=== PATIENT | female | born 1935 | race Caucasian/White ===

== ENCOUNTER 2019-09-22 10:24 | Emergency (ER) | payer OTHER ==
[~2019-09-22] VITALS: Ht 157.5 cm; Wt 52.6 kg
[~2019-09-22 10:24] MED LIST: ADULT LOW DOSE81 MG PO; BENTYL20 MG PO; CALCIUM 500 +1 EAC5 PO; CENTRUM SILVER1 EAC4 PO; CENTRUM ULTRA1 EACH PO; CLARITIN10 MG PO; FISH OIL 1,0001 EAC5 PO; NEPHROCAPS SOFT1 CAP; NIASPAN ER 101000 M1 PO; TYLENOL325 MG PO; ZPAK PO
[2019-09-22] MEDS ORDERED: NORCO 5-325 TA1 EAC1 PO (11:28)
[2019-09-22 11:44] VITALS: BP 118/67
== END 2019-09-22 11:45 | disposition home or self-care (01) ==
LOC: M.ERS 10:24
DX: S00.03XA Contusion of scalp, initial encounter (principal); E78.00 Pure hypercholesterolemia, unspecified; Z98.890 Other specified postprocedural states; Z88.8 Allergy status to other drugs, medicaments and biological substances; W22.8XXA Striking against or struck by other objects, initial encounter; Y93.89 Activity, other specified; Y92.89 Other specified places as the place of occurrence of the external cause; Y99.8 Other external cause status

== ENCOUNTER 2020-03-31 14:34 | Emergency (ER) | payer OTHER ==
[~2020-03-31] VITALS: Ht 157.5 cm; Wt 53.5 kg
[~2020-03-31 14:34] MED LIST changes: +NORCO 5-325 TA1 EAC1 PO
[2020-03-31 16:30] VITALS: BP 136/70
== END 2020-03-31 16:30 | disposition home or self-care (01) ==
LOC: M.ERS 14:34
DX: S00.83XA Contusion of other part of head, initial encounter (principal); S40.211A Abrasion of right shoulder, initial encounter; S61.401A Unspecified open wound of right hand, initial encounter; E78.00 Pure hypercholesterolemia, unspecified; Z88.6 Allergy status to analgesic agent; Z79.82 Long term (current) use of aspirin; W01.0XXA Fall on same level from slipping, tripping and stumbling without subsequent striking against object, initial encounter; Y93.89 Activity, other specified; Y92.89 Other specified places as the place of occurrence of the external cause; Y99.8 Other external cause status

== ENCOUNTER → 2020-12-16 | Outpatient (CLI) | payer OTHER | LOC: M.RAD 12-08 16:24 | PROVIDERS: ATTEND Internal Medicine | DX: Z12.31 Encounter for screening mammogram for malignant neoplasm of breast (principal); M19.031 Primary osteoarthritis, right wrist; Z78.0 Asymptomatic menopausal state ==

== ENCOUNTER → 2021-04-14 | Outpatient (CLI) | payer OTHER | LOC: M.RAD 13:57 | PROVIDERS: ATTEND Internal Medicine | DX: M25.562 Pain in left knee (principal); I77.1 Stricture of artery; D16.22 Benign neoplasm of long bones of left lower limb ==

== ENCOUNTER → 2021-05-12 | Outpatient (CLI) | payer OTHER | LOC: M.RAD 16:44 | PROVIDERS: ATTEND Internal Medicine | DX: S52.355A Nondisplaced comminuted fracture of shaft of radius, left arm, initial encounter for closed fracture (principal); M25.432 Effusion, left wrist; M25.532 Pain in left wrist; M19.032 Primary osteoarthritis, left wrist; M85.88 Other specified disorders of bone density and structure, other site; X58.XXXA Exposure to other specified factors, initial encounter; Y92.89 Other specified places as the place of occurrence of the external cause; Y93.89 Activity, other specified; Y99.8 Other external cause status ==

== ENCOUNTER → 2021-05-19 | Outpatient (CLI) | payer OTHER | LOC: M.LAB 12:30 | PROVIDERS: ATTEND Orthopaedic Surgery | DX: Z01.812 Encounter for preprocedural laboratory examination (principal); Z20.822 Contact with and (suspected) exposure to COVID-19 ==